=== PATIENT | female | born 1980 | race Caucasian/White ===

== ENCOUNTER → 2020-11-12 13:06 | Outpatient (CLI) | payer OTHER, SELFPAY ==
[2020-11-12 14:00] LABS: COVID19 -Nasal RAPID Negative (Negative)
== END ==
PROVIDERS: Referring Provider Nurse Practitioner Family; Visit Provider Nurse Practitioner Family
DX: Z20.822 Contact with and (suspected) exposure to COVID-19 (principal); J02.9 Acute pharyngitis, unspecified
CPT/HCPCS: 87635